=== PATIENT | male | born 1945 | race Caucasian/White ===

== ENCOUNTER 2017-01-18 13:18 | Outpatient (CLI) | payer MEDICARE, OTHER ==
[2017-01-18] MEDS ORDERED: ALBUTEROL NEB 2.5 MG/3 ML INH ONE (14:07)
== END 2017-01-18 13:19 | disposition home or self-care (01) ==
DX: R05 Cough (principal)
CPT/HCPCS: 94060; 94729; J7613

== ENCOUNTER 2017-06-17 11:45 | Outpatient (CLI) | payer MEDICARE, OTHER ==
[2017-06-17 19:12] LABS: ALBUMIN/GLOBULIN RATIO 1.4 (1.0-2.2); BILIRUBIN,TOTAL 0.6 mg/dL (0.2-1.0); CALCIUM 9.2 mg/dL (8.5-10.3); CREATININE 0.9 mg/dL (0.6-1.2); POTASSIUM 4.5 mmol/L (3.5-5.0); TOTAL PROTEIN 6.7 g/dL (6.7-8.2)
[2017-06-17 19:47] LABS: BASOPHILS # (AUTO) 0.1 10^3/uL (0.0-0.1); EOSINOPHILS # (AUTO) 0.7 10^3/uL (0.0-0.7); EOSINOPHILS % (AUTO) 8.9 %; HCT - HEMATOCRIT 47.1 % (42.0-52.0); HGB - HEMOGLOBIN 15.6 g/dL (14.0-18.0); LYMPHOCYTES # (AUTO) 1.7 10^3/uL (1.5-3.5); LYMPHOCYTES % (AUTO) 20.6 %; MEAN CORPUSCULAR HEMOGLOBIN 31.5 pg (27.0-31.0); MEAN CORPUSCULAR HGB CONC 33.1 g/dL (32.0-36.0); MEAN CORPUSCULAR VOLUME 95.3 fL (80.0-94.0); MEAN PLATELET VOLUME 8.5 fL (7.4-11.4); MONOCYTES # (AUTO) 0.7 10^3/uL (0.0-1.0); MONOCYTES % (AUTO) 8.4 %; NEUTROPHILS % (AUTO) 61.1 %; RED BLOOD COUNT 4.94 10^6/uL (4.70-6.10); RED CELL DISTRIBUTION WIDTH 15.2 % (12.0-15.0); UNCORRECTED WHITE BLOOD COUNT 8.2 x10^3/uL; WHITE BLOOD COUNT 8.2 x10^3/uL (4.8-10.8)
== END 2017-06-17 11:46 | disposition home or self-care (01) ==
LOC: LAB.WCP 11:45
PROVIDERS: ATTEND Family Medicine
DX: J45.998 Other asthma (principal); I25.10 Atherosclerotic heart disease of native coronary artery without angina pectoris; L40.9 Psoriasis, unspecified
CPT/HCPCS: 36415; 80053; 85025

== ENCOUNTER 2017-11-26 09:01 | Outpatient (CLI) | payer MEDICARE, OTHER ==
[2017-11-26 13:03] LABS: BASOPHILS % (AUTO) 0.4 %; EOSINOPHILS # (AUTO) 0.8 10^3/uL (0.0-0.7); HGB - HEMOGLOBIN 15.5 g/dL (14.0-18.0); LYMPHOCYTES % (AUTO) 21.8 %; MEAN CORPUSCULAR HEMOGLOBIN 31.9 pg (27.0-31.0); MEAN CORPUSCULAR HGB CONC 33.5 g/dL (32.0-36.0); MEAN CORPUSCULAR VOLUME 95.3 fL (80.0-94.0); MEAN PLATELET VOLUME 8.4 fL (7.4-11.4); MONOCYTES # (AUTO) 0.6 10^3/uL (0.0-1.0); MONOCYTES % (AUTO) 6.9 %; NEUTROPHILS # (AUTO) 5.7 10^3/uL (1.5-6.6); NEUTROPHILS % (AUTO) 61.9 %; PLT - PLATELET COUNT 214 10^3/uL (130-450); RED BLOOD COUNT 4.84 10^6/uL (4.70-6.10); RED CELL DISTRIBUTION WIDTH 13.8 % (12.0-15.0); WHITE BLOOD COUNT 9.1 x10^3/uL (4.8-10.8)
[2017-11-26 13:23] LABS: ALBUMIN 3.9 g/dL (3.2-5.5); ALBUMIN/GLOBULIN RATIO 1.2 (1.0-2.2); ALKALINE PHOSPHATASE 78 IU/L (42-121); ALT ALANINE AMINOTRANSFERASE 21 IU/L (10-60); AST ASPARTATE AMINOTRANSFERASE 21 IU/L (10-42); BILIRUBIN,TOTAL 0.5 mg/dL (0.2-1.0); BUN - BLOOD UREA NITROGEN 22 mg/dL (6-20); CALCIUM 9.2 mg/dL (8.5-10.3); CARBON DIOXIDE - CO2 28 mmol/L (21-32); CHLORIDE 103 mmol/L (101-111); CHOL/HDL RATIO 5.1 (<5.0); CHOLESTEROL 137 mg/dL; GFR - MDRD 73 (>89); GLUCOSE 113 mg/dL (70-100); HDL CHOLESTEROL 27 mg/dL; LDL CHOLESTEROL,CALCULATED 73 mg/dL; LDL/HDL RATIO 2.7 (<3.6); SODIUM 138 mmol/L (135-145); TOTAL PROTEIN 7.2 g/dL (6.7-8.2); VLDL CHOLESTEROL 37 mg/dL
== END 2017-11-26 09:02 | disposition home or self-care (01) ==
LOC: LAB.WCP 09:01
PROVIDERS: ATTEND Family Medicine
DX: I25.10 Atherosclerotic heart disease of native coronary artery without angina pectoris (principal); E78.5 Hyperlipidemia, unspecified; E66.9 Obesity, unspecified; I10 Essential (primary) hypertension; Z79.899 Other long term (current) drug therapy
CPT/HCPCS: 36415; 80053; 80061; 84443; 85025

== ENCOUNTER 2018-05-24 14:18 | Outpatient (CLI) | payer MEDICARE, OTHER ==
--- NOTE | 2018-05-25 09:47 | Ultrasound Report ---
Procedure Date: 05/24/2018 Accession Number: [id number] / [id number] Procedure: US - Carotid Doppler Complete CPT Code: FULL RESULT: EXAM: BILATERAL CAROTID AND VERTEBRAL ARTERY DUPLEX DOPPLER ULTRASOUND: EXAM DATE: 05/24/2018 04:00 PM CLINICAL HISTORY: Dilated episcleral vessels left eye. COMPARISON: None. TECHNIQUE: Grayscale imaging, color Doppler, and duplex spectral Doppler were used to evaluate the carotid and vertebral arteries bilaterally. Static images were obtained. FINDINGS: Calcified atheromatous plaque is seen in the right common and internal carotid and external carotid arteries. Calcified atheromatous plaque is seen in the left common and left internal and external carotid arteries. Normal antegrade flow is present in bilateral vertebral arteries. VELOCITIES: Right: RCCA Prox: PSV 113 cm/sec. RCCA Dist: PSV 86 cm/sec, EDV 17 cm/sec. RECA: PSV 141 cm/sec. R Bulb: PSV 77 cm/sec, EDV 14 cm/sec, ICA/CCA ratio 0.90. KEENAN Prox: PSV 107 cm/sec, EDV 18 cm/sec, ICA/CCA ratio 1.24. KEENAN Mid: PSV 116 cm/sec, EDV 25 cm/sec, ICA/CCA ratio 1.35. KEENAN Dist: PSV 87 cm/sec, EDV 27 cm/sec, ICA/CCA ratio 1.01. RVA: PSV 75 cm/sec. RVA flow direction: Antegrade. Left: LCCA Prox: PSV 141 cm/sec. LCCA Dist: PSV 73 cm/sec, EDV 15 cm/sec. LECA: PSV 94 cm/sec. L Bulb: PSV 45 cm/sec, EDV 7 cm/sec, ICA/CCA ratio 0.62. LICA Prox: PSV 80 cm/sec, EDV 21 cm/sec, ICA/CCA ratio 1.10. LICA Mid: PSV 69 cm/sec, EDV 21 cm/sec, ICA/CCA ratio 0.95. LICA Dist: PSV 116 cm/sec, EDV 35 cm/sec, ICA/CCA ratio 1.59. LVA: PSV 73 cm/sec. LVA flow direction: Antegrade. ICA diameter stenosis: Right: <50% by velocity and <70% by NASCET criteria. Left: <50% by velocity and <70% by NASCET criteria. IMPRESSION: 1. Bilateral carotid artery calcified atheromatous plaque. 2. In the right carotid artery there are no elevated carotid artery velocities to suggest hemodynamically significant stenosis. 3. In the left carotid artery there are no elevated carotid artery velocities to suggest hemodynamically significant stenosis. 4. Normal antegrade flow is present in bilateral vertebral arteries. General Recommendations: Stenosis =50% ICA - Follow-up ultrasound 6-12 months Stenosis <50% ICA - High Risk Patient with plaque - Follow-up ultrasound 1-2 years Normal Study but High Risk Patient - Follow-up ultrasound 3-5 years Management recommendations and diagnostic criteria are based on current IAC endorsed standards in Carotid Artery Stenosis: Grayscale and Doppler Ultrasound Diagnosis. Validated velocity measurements with angiographic measurements and velocity criteria are extrapolated from diameter data as defined by the Society of Radiologists in Ultrasound Consensus Conference Radiology 2003; 229;340-346. RADIA
== END 2018-05-24 14:19 | disposition home or self-care (01) ==
LOC: DI 14:18
PROVIDERS: ATTEND Ophthalmology
DX: H15.89 Other disorders of sclera (principal)
CPT/HCPCS: 93880

== ENCOUNTER 2018-06-01 11:21 | Outpatient (CLI) | payer MEDICARE, OTHER ==
[2018-06-01 12:30] LABS: BASOPHILS # (AUTO) 0.1 10^3/uL (0.0-0.1); EOSINOPHILS # (AUTO) 0.8 10^3/uL (0.0-0.7); HGB - HEMOGLOBIN 14.8 g/dL (14.0-18.0); LYMPHOCYTES # (AUTO) 1.4 10^3/uL (1.5-3.5); LYMPHOCYTES % (AUTO) 18.5 %; MEAN CORPUSCULAR HEMOGLOBIN 30.9 pg (27.0-31.0); MEAN CORPUSCULAR HGB CONC 32.8 g/dL (32.0-36.0); MEAN CORPUSCULAR VOLUME 94.2 fL (80.0-94.0); MEAN PLATELET VOLUME 7.4 fL (7.4-11.4); MONOCYTES # (AUTO) 0.6 10^3/uL (0.0-1.0); MONOCYTES % (AUTO) 8.2 %; NEUTROPHILS # (AUTO) 4.8 10^3/uL (1.5-6.6); NEUTROPHILS % (AUTO) 62.3 %; PLT - PLATELET COUNT 259 10^3/uL (130-450); RED CELL DISTRIBUTION WIDTH 14.6 % (12.0-15.0); WHITE BLOOD COUNT 7.7 x10^3/uL (4.8-10.8)
[2018-06-01 12:40] LABS: URIC ACID 6.1 mg/dL (2.6-7.2)
[2018-06-01 13:06] LABS: RHEUMATOID FACTOR NEGATIVE (Negative)
[2018-06-03 13:31] LABS: ANA SCREEN NEGATIVE (NEGATIVE)
[2018-06-03 21:15] LABS: ANGIOTENSIN-1-CONVERTING ENZYM 20 U/L (9-67)
== END 2018-06-01 11:22 | disposition home or self-care (01) ==
LOC: LAB 11:21
PROVIDERS: ATTEND Ophthalmology
DX: H15.122 Nodular episcleritis, left eye (principal)
CPT/HCPCS: 36415; 82164; 82947; 84550; 85025; 85651; 86021; 86038; 86430

== ENCOUNTER 2018-07-22 07:43 | Day surgery (SDC) | payer MEDICARE, OTHER ==
[~2018-07-22 07:43] MED LIST: BRIMONIDINE 0.2% OPHTH DROPS 5 ML ONE; BSS/LIDOCAINE/EPINEPHRINE 1 ML SYRINGE ONE; CYCLOPENTOLATE 1% OPHTH DROPS 2 ML ONE; EPINEPHrine 1 MG/ML AMP ONE; KETOROLAC 0.45% OPHTH DROPS ONE; PHENYLEPHRINE 2.5% OPHTH 2 ML DROPS ONE; PROPARACAINE 0.5% OPHTH DROPS 15 ML ONE; TIMOLOL 0.5% OPHTH DROPS ONE; TRIAMCIN/MOXIFLOX OPHTHALMIC 0.6 ML VIAL IO ONE; VANCOMYCIN OPHTHALMI 8MG/0.8ML 8 MG/0.8 ML SYRINGE IO ONE
[2018-07-22] MEDS ORDERED: KETOROLAC 0.45% OPHTH DROPS LEFTEYE ONE (08:20)
[2018-07-22] MEDS ORDERED: PROPARACAINE 0.5% OPHTH DROPS 15 ML LEFTEYE ONE ×2 (08:20→09:19)
[2018-07-22] MEDS ORDERED: PHENYLEPHRINE 2.5% OPHTH 2 ML DROPS LEFTEYE ONE (08:20)
[2018-07-22] MEDS ORDERED: CYCLOPENTOLATE 1% OPHTH DROPS 2 ML LEFTEYE ONE (08:20)
[2018-07-22] MEDS ORDERED: LACTATED RINGERS 500 ML IV ONE (08:23)
--- NOTE | 2018-07-22 08:45 | ANESTHESIA ---
Pre-Anesthesia VS, & Labs - Diagnosis left senile combined cataract - Procedure left extraction cataract with lens implant Vital Signs: Temp Pulse Resp BP Pulse Ox 36.7 C 20 157/73 H 97 07/22/18 08:08 07/22/18 08:08 07/22/18 08:08 07/22/18 08:08 Height 6 ft Weight (kg) 143 kg - NPO >8 hours - Lab Results Lab results reviewed: Yes Home Medications and Allergies Home Medications: Ambulatory Orders Medication Instructions Recorded Confirmed FLUoxetine [PROzac] 20 mg PO DAILY 07/21/18 07/22/18 Folic Acid 1 mg PO DAILY 07/21/18 07/22/18 Losartan Potassium 50 mg PO DAILY 07/21/18 07/22/18 Methotrexate 5 tab PO ONCE 07/21/18 07/22/18 Metoprolol Tartrate 25 mg PO DAILY 07/21/18 07/22/18 Simvastatin 80 mg PO DAILY 07/21/18 07/22/18 Tamsulosin [Flomax] 0.4 mg PO DAILY 07/21/18 07/22/18 Allergies/Adverse Reactions: Allergies Allergy/AdvReac Type Severity Reaction Status Date / Time No Known Drug Allergies Allergy Verified 07/21/18 15:07 Anes History & Medical History - Anesthetic History Anesthesia Complications: reports: No previous complications Family history of Anesthesia Complications: Denies Family history of Malignant Hyperthermia: Denies - Medical History Cardiovascular: reports: Hypertension, High cholesterol Pulmonary: reports: Sleep apnea Gastrointestinal: reports: None Urinary: reports: Benign prostate hypertrophy Musculoskeletal: reports: None Endocrine/Autoimmune: reports: None Skin: reports: Psoriasis - Surgical History General: Colonoscopy Eyes Ears Nose Throat (EENT): Other Cardiothoracic: Vascular surgery, AAA Orthopedic:  Exam General: Alert, Oriented x3, Cooperative, No acute distress Dental: Partials Upper, Partials Lower Mouth Openin Fingerbreadth Neck Mobility: Normal Mallampati classification: II Thyromental Distance: greater than 6 cm Respiratory: Lungs clear, Normal breath sounds, No respiratory distress, No accessory muscle use Cardiovascular: Regular rate, Normal S1, Normal S2, No murmurs Mental/Cognitive Status: Alert/Oriented X3, Normal for patient Cognitive Status: Within normal limits Plan Anesthesia Type: MAC Consent for Procedure(s) Verified and Reviewed: Yes Code Status: Attempt Resuscitation ASA classification: 3-Severe systemic disease Is this case an emergency?: No
[2018-07-22] MEDS ORDERED: VANCOMYCIN OPHTHALMI 8MG/0.8ML 8 MG/0.8 ML SYRINGE IO ONE (09:16)
[2018-07-22] MEDS ORDERED: EPINEPHrine 1 MG/ML AMP IR ONE (09:17)
[2018-07-22] MEDS ORDERED: BRIMONIDINE 0.2% OPHTH DROPS 5 ML OPTH ONE (09:17)
[2018-07-22] MEDS ORDERED: CHONDR SULF/HYALURONATE SYRINGE IO ONE (09:18)
[2018-07-22] MEDS ORDERED: BSS/LIDOCAINE/EPINEPHRINE 1 ML SYRINGE IO ONE ×2 (09:18)
[2018-07-22] MEDS ORDERED: TRIAMCIN/MOXIFLOX/VANCO 1 ML VIAL IO ONE (09:18)
[2018-07-22] MEDS ORDERED: TIMOLOL 0.5% OPHTH DROPS OPTH ONE (09:18)
[2018-07-22] MEDS ORDERED: MIDAZOLAM 2 MG/2 ML VIAL IVP ONE (09:20)
[2018-07-22 10:25] VITALS: BP 171/80
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
== END 2018-07-22 07:44 | disposition home or self-care (01) ==
LOC: SDS 07:43
PROVIDERS: ATTEND Ophthalmology
PROC: 08RK3JZ Replacement of Left Lens with Synthetic Substitute, Percutaneous Approach (ICD-10-PCS; principal; 2018-07-22 09:00)
DX: H25.812 Combined forms of age-related cataract, left eye (principal); I10 Essential (primary) hypertension; G47.30 Sleep apnea, unspecified; E78.00 Pure hypercholesterolemia, unspecified; F41.9 Anxiety disorder, unspecified; N40.0 Benign prostatic hyperplasia without lower urinary tract symptoms; Z86.79 Personal history of other diseases of the circulatory system
CPT/HCPCS: 66984; A9270; J3490; V2632

== ENCOUNTER 2018-09-19 01:25 | Emergency (ER) | payer OTHER, MEDICARE ==
[2018-09-19] MEDS ORDERED: MORPHINE 2 MG/ML CARPUJECT IVP STA (01:40)
[2018-09-19] MEDS ORDERED: IOPAMIDOL-300 100 ML VIAL ONE (01:50)
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
[2018-09-19 02:03] LABS: BASOPHILS # (AUTO) 0.1 10^3/uL (0.0-0.1); BASOPHILS % (AUTO) 0.5 %; EOSINOPHILS # (AUTO) 0.4 10^3/uL (0.0-0.7); EOSINOPHILS % (AUTO) 2.4 %; HGB - HEMOGLOBIN 14.9 g/dL (14.0-18.0); LYMPHOCYTES # (AUTO) 1.1 10^3/uL (1.5-3.5); LYMPHOCYTES % (AUTO) 7.6 %; MEAN CORPUSCULAR HEMOGLOBIN 31.8 pg (27.0-31.0); MEAN CORPUSCULAR HGB CONC 34.6 g/dL (32.0-36.0); MEAN CORPUSCULAR VOLUME 91.8 fL (80.0-94.0); MEAN PLATELET VOLUME 7.4 fL (7.4-11.4); MONOCYTES # (AUTO) 1.1 10^3/uL (0.0-1.0); MONOCYTES % (AUTO) 7.4 %; NEUTROPHILS # (AUTO) 12.4 10^3/uL (1.5-6.6); NEUTROPHILS % (AUTO) 82.1 %; PLT - PLATELET COUNT 219 10^3/uL (130-450); RED BLOOD COUNT 4.68 10^6/uL (4.70-6.10); RED CELL DISTRIBUTION WIDTH 14.2 % (12.0-15.0); WHITE BLOOD COUNT 15.2 x10^3/uL (4.8-10.8)
[2018-09-19 02:09] LABS: ALBUMIN 3.9 g/dL (3.2-5.5); ALBUMIN/GLOBULIN RATIO 1.3 (1.0-2.2); BILIRUBIN,TOTAL 0.3 mg/dL (0.2-1.0); CALCIUM 8.5 mg/dL (8.5-10.3); CREATININE 0.9 mg/dL (0.6-1.2); TOTAL PROTEIN 6.9 g/dL (6.7-8.2)
[2018-09-19] MEDS ORDERED: IOPAMIDOL-300 100 ML VIAL IVP ONE (02:36)
[2018-09-19] MEDS ORDERED: HYDROcod/ACETAM 5/325 MG TABLET PO STA (03:07)
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
[2018-09-19 05:48] VITALS: BP 132/65
== END 2018-09-19 05:52 | disposition short-term general hospital (02) ==
LOC: ED 01:25
DX: I71.01 Dissection of thoracic aorta (principal); S32.041A Stable burst fracture of fourth lumbar vertebra, initial encounter for closed fracture; S32.039A Unspecified fracture of third lumbar vertebra, initial encounter for closed fracture; S32.049A Unspecified fracture of fourth lumbar vertebra, initial encounter for closed fracture; V89.2XXA Person injured in unspecified motor-vehicle accident, traffic, initial encounter; K43.9 Ventral hernia without obstruction or gangrene; I10 Essential (primary) hypertension; Z87.891 Personal history of nicotine dependence
CPT/HCPCS: 36415; 71275; 74174; 80053; 83690; 84484; 85025; 93005; 96374; 99284; 99285; A9270; Q9967

== ENCOUNTER 2018-09-19 05:57 | Outpatient (CLI) | payer MEDICARE, OTHER | END 2018-09-19 05:58 | disposition short-term general hospital (02) | LOC: EMS 05:57 | PROVIDERS: ATTEND Surgery | DX: I71.01 Dissection of thoracic aorta (principal) | CPT/HCPCS: A0425; A0426 ==

== ENCOUNTER 2018-10-28 17:45 | Outpatient (CLI) | payer MEDICARE, OTHER ==
[2018-10-28 18:30] LABS: BASOPHILS % (AUTO) 0.5 %; EOSINOPHILS # (AUTO) 0.2 10^3/uL (0.0-0.7); EOSINOPHILS % (AUTO) 2.6 %; HGB - HEMOGLOBIN 13.4 g/dL (14.0-18.0); LYMPHOCYTES # (AUTO) 1.4 10^3/uL (1.5-3.5); LYMPHOCYTES % (AUTO) 18.8 %; MEAN CORPUSCULAR HEMOGLOBIN 30.9 pg (27.0-31.0); MEAN CORPUSCULAR HGB CONC 32.9 g/dL (32.0-36.0); MEAN CORPUSCULAR VOLUME 93.8 fL (80.0-94.0); MEAN PLATELET VOLUME 7.2 fL (7.4-11.4); MONOCYTES # (AUTO) 0.7 10^3/uL (0.0-1.0); NEUTROPHILS # (AUTO) 5.1 10^3/uL (1.5-6.6); NEUTROPHILS % (AUTO) 69.1 %; PLT - PLATELET COUNT 288 10^3/uL (130-450); RED BLOOD COUNT 4.35 10^6/uL (4.70-6.10); RED CELL DISTRIBUTION WIDTH 14.7 % (12.0-15.0); WHITE BLOOD COUNT 7.4 x10^3/uL (4.8-10.8)
== END 2018-10-28 23:59 | disposition home or self-care (01) ==
LOC: LAB.R 17:45
DX: I10 Essential (primary) hypertension (principal); D72.829 Elevated white blood cell count, unspecified
CPT/HCPCS: 80048; 85025

== ENCOUNTER 2018-12-02 07:43 | Day surgery (SDC) | payer MEDICARE, OTHER ==
[~2018-12-02 07:43] MED LIST changes: -EPINEPHrine 1 MG/ML AMP ONE
[2018-12-02] MEDS ORDERED: KETOROLAC 0.45% OPHTH DROPS RIGHTEYE ONE (08:00)
[2018-12-02] MEDS ORDERED: PHENYLEPHRINE 2.5% OPHTH 2 ML DROPS RIGHTEYE ONE (08:00)
[2018-12-02] MEDS ORDERED: CYCLOPENTOLATE 1% OPHTH DROPS 2 ML RIGHTEYE ONE (08:00)
[2018-12-02] MEDS ORDERED: PROPARACAINE 0.5% OPHTH DROPS 15 ML RIGHTEYE ONE (08:00)
[2018-12-02] MEDS ORDERED: MIDAZOLAM 2 MG/2 ML VIAL IVP ONE (08:24)
--- NOTE | 2018-12-02 08:24 | ANESTHESIA ---
Pre-Anesthesia VS, & Labs - Diagnosis R senile combined cataract - Procedure R extraction cataract w IOL Vital Signs: Temp Pulse Resp BP Pulse Ox 36.3 C L 64 18 115/68 98 12/02/18 08:01 12/02/18 08:01 12/02/18 08:01 12/02/18 08:01 12/02/18 08:01 Last Vital Signs Temp 36.3 C L 12/02/18 08:01 Pulse 64 12/02/18 08:01 Resp 18 12/02/18 08:01 BP 115/68 12/02/18 08:01 Pulse Ox 98 12/02/18 08:01 Height 6 ft 1 in Weight (kg) 128.4 kg Body Mass Index 41.9 Height 6 ft 1 in Weight (kg) 128.4 kg Body Mass Index 41.9 - NPO >8 hours Home Medications and Allergies Home Medications: Ambulatory Orders Aspirin [Adult Aspirin Regimen] 81 mg PO DAILY 12/01/18 Fluticasone [Flonase] 1 puffs NS BID 12/01/18 Spironolactone 25 mg PO DAILY 12/01/18 FLUoxetine [PROzac] 20 mg PO DAILY 07/21/18 Folic Acid 1 mg PO DAILY 07/21/18 Losartan Potassium 100 mg PO DAILY 07/21/18 Methotrexate 5 tab PO ONCE 07/21/18 Metoprolol Tartrate 100 mg PO BID 07/21/18 Simvastatin 40 mg PO DAILY 07/21/18 Tamsulosin [Flomax] 0.4 mg PO DAILY 07/21/18 Aspirin [Adult Aspirin Regimen] 81 mg PO DAILY 12/01/18 Fluticasone [Flonase] 1 puffs NS BID 12/01/18 Spironolactone 25 mg PO DAILY 12/01/18 Allergies/Adverse Reactions: Allergies Allergy/AdvReac Type Severity Reaction Status Date / Time No Known Drug Allergies Allergy Verified 09/19/18 01:34 Anes History & Medical History - Anesthetic History Anesthesia Complications: reports: No previous complications Family history of Anesthesia Complications: Denies Family history of Malignant Hyperthermia: Denies - Medical History Cardiovascular: reports: Hypertension, High cholesterol Pulmonary: reports: Sleep apnea Gastrointestinal: reports: None Urinary: reports: Benign prostate hypertrophy Musculoskeletal: reports: None Endocrine/Autoimmune: reports: None Skin: reports: Psoriasis Smoking Status: Former smoker Psychosocial: reports: No issues indicated - Surgical History General: Colonoscopy Eyes Ears Nose Throat (EENT): Cataracts Cardiothoracic: Vascular surgery, AAA Orthopedic:  Exam General: Alert, Oriented x3, Cooperative Dental: Partials Upper, Partials Lower Mouth Openin Fingerbreadth Neck Mobility: Normal Mallampati classification: II Thyromental Distance: 4-6 cm Respiratory: Lungs clear, Normal breath sounds Cardiovascular: Regular rate Neurological: Normal speech Mental/Cognitive Status: Alert/Oriented X3, Normal for patient Cognitive Status: Within normal limits Plan Anesthesia Type: MAC Consent for Procedure(s) Verified and Reviewed: Yes Code Status: Attempt Resuscitation ASA classification: 3-Severe systemic disease Is this case an emergency?: No
[2018-12-02] MEDS ORDERED: LACTATED RINGERS 500 ML IV ONE (08:35)
[2018-12-02] MEDS ORDERED: EPINEPHrine 1 MG/ML AMP IVP ONE (09:12)
[2018-12-02] MEDS ORDERED: BRIMONIDINE 0.2% OPHTH DROPS 5 ML OPTH ONE (09:12)
[2018-12-02] MEDS ORDERED: BSS/LIDOCAINE/EPINEPHRINE 1 ML SYRINGE IO ONE (09:13)
[2018-12-02] MEDS ORDERED: TIMOLOL 0.5% OPHTH DROPS OPTH ONE (09:13)
[2018-12-02] MEDS ORDERED: CHONDR SULF/HYALURONATE SYRINGE IO ONE (09:13)
[2018-12-02] MEDS ORDERED: VANCOMYCIN OPHTHALMI 8MG/0.8ML 8 MG/0.8 ML SYRINGE IO ONE (09:15)
[2018-12-02] MEDS ORDERED: TRIAMCIN/MOXIFLOX OPHTHALMIC 0.6 ML VIAL IO ONE (09:15)
[2018-12-02 10:14] VITALS: BP 136/64
== END 2018-12-02 07:44 | disposition home or self-care (01) ==
LOC: SDS 07:43
PROVIDERS: ATTEND Ophthalmology
PROC: 08RJ3JZ Replacement of Right Lens with Synthetic Substitute, Percutaneous Approach (ICD-10-PCS; principal; 2018-12-02 09:00)
DX: H25.811 Combined forms of age-related cataract, right eye (principal); I10 Essential (primary) hypertension; E78.00 Pure hypercholesterolemia, unspecified; G47.30 Sleep apnea, unspecified; N40.0 Benign prostatic hyperplasia without lower urinary tract symptoms; Z87.891 Personal history of nicotine dependence
CPT/HCPCS: 66984; A9270; J3490; V2632

== ENCOUNTER 2019-01-04 13:51 | Outpatient (CLI) | payer MEDICARE, OTHER ==
--- NOTE | 2019-01-04 14:59 | XRAY Report ---
Reason: COUGH Procedure Date: 01/04/2019 Accession Number: [id number] / [id number] Procedure: WCP - Chest 2 View X-Ray CPT Code: 68921 FULL RESULT: EXAM: CHEST RADIOGRAPHY EXAM DATE: 01/04/2019 02:05 PM. CLINICAL HISTORY: COUGH. COMPARISON: Chest CT 09/19/2018. TECHNIQUE: 2 views. FINDINGS: Lungs/Pleura: Left perihilar linear opacities appear similar to prior CT and likely represent atelectasis. No other focal opacities. No pleural effusion. No pneumothorax. Normal volumes. Mediastinum: There is tortuosity of the thoracic aorta. Heart and mediastinal contours are otherwise unremarkable. IMPRESSION: No evidence of acute thoracic process RADIA
== END 2019-01-04 13:52 | disposition home or self-care (01) ==
LOC: DI.WCP 13:51
PROVIDERS: ATTEND Physician Assistant
DX: R05 Cough (principal)
CPT/HCPCS: 71046

== ENCOUNTER 2021-04-01 12:14 | Day surgery (SDC) | payer MEDICARE, OTHER ==
[2021-04-01] MEDS ORDERED: LACTATED RINGERS 1,000 ML IV ONE ×2 (12:54→14:22)
--- NOTE | 2021-04-01 12:54 | ANESTHESIA ---
Pre-Anesthesia VS, & Labs - Diagnosis screening - Procedure colonoscopy Height: 6 ft 1 in - NPO >8 hours Home Medications and Allergies FLUoxetine [PROzac] 20 mg PO DAILY 07/21/18 Folic Acid 1 mg PO DAILY 07/21/18 Losartan Potassium 100 mg PO DAILY 07/21/18 Methotrexate [Methotrexate Sodium] 5 tab PO ONCE 07/21/18 Metoprolol Tartrate 100 mg PO BID 07/21/18 Simvastatin 40 mg PO DAILY 07/21/18 Tamsulosin [Flomax] 0.4 mg PO DAILY 07/21/18 Aspirin [Adult Aspirin Regimen] 81 mg PO DAILY 12/01/18 Fluticasone [Flonase] 1 puffs NS BID 12/01/18 Spironolactone 25 mg PO DAILY 12/01/18 Allergies/Adverse Reactions: Allergies Allergy/AdvReac Type Severity Reaction Status Date / Time No Known Drug Allergies Allergy Verified 09/19/18 01:34 Anes History & Medical History - Anesthetic History Anesthesia Complications: reports: No previous complications Family history of Anesthesia Complications: Denies Family history of Malignant Hyperthermia: Denies - Medical History Cardiovascular: reports: Hypertension, Valve disorder (), Other (AAA repair 2011) Pulmonary: reports: Shortness of breath Gastrointestinal: reports: None Urinary: reports: Frequency Musculoskeletal: reports: None Endocrine/Autoimmune: reports: None Skin: reports: Psoriasis Smoking Status: Former smoker - Surgical History General: reports: Colonoscopy Eyes Ears Nose Throat (EENT): reports: Cataracts Cardiothoracic: reports: AAA Orthopedic: Exam General: Alert, Oriented x3 Dental: Partials Upper, Partials Lower Mouth Openin Fingerbreadth Neck Mobility: Normal Mallampati classification: III Thyromental Distance: 4-6 cm Respiratory: Lungs clear Cardiovascular: Regular rate Plan Anesthesia Type: General, Total IV Consent for Procedure(s) Verified and Reviewed: Yes Code Status: Attempt Resuscitation ASA classification: 3-Severe systemic disease Is this case an emergency?: No
[2021-04-01] MEDS ORDERED: PROPOFOL 1000 MG/100 ML 1,000 MG/100 ML BOTTLE IV ONE (13:27)
[2021-04-01] MEDS ORDERED: IOPAMIDOL-300 100 ML VIAL ONE (14:35)
[2021-04-01] MEDS ORDERED: IOPAMIDOL-300 50 ML VIAL ONE (14:35)
[2021-04-01 14:49] VITALS: BP 149/65
[2021-04-01] MEDS ORDERED: IOPAMIDOL-300 100 ML VIAL IVP ONE (15:34)
[2021-04-01] MEDS ORDERED: IOPAMIDOL-300 50 ML VIAL PO ONE (15:34)
--- NOTE | 2021-04-01 16:06 | CT Report ---
PROCEDURE: Abdomen/Pelvis W INDICATIONS: incomplete colonoscopy/ with rectal contrast CONTRAST: IV CONTRAST: Isovue 300 ml: 100 PO CONTRAST: Isovue 300 ml50 TECHNIQUE: After the administration of intravenous and rectal contrast, 5 mm thick sections acquired from the di aphragms to the symphysis. 5 mm thick coronal and sagittal reformats were acquired. For radiation d ose reduction, the following was used: automated exposure control, adjustment of mA and/or kV accord ing to patient size. COMPARISON: CT angiogram abdomen pelvis 09/19/2018. FINDINGS: Image quality: Excellent. ABDOMEN: Lung bases: There is mild atelectasis and scarring in the lung bases. Heart size is enlarged. Solid organs: Multiple small hypodense lesions are redemonstrated within the liver, several of which demonstrate attenuation values consistent with cysts. The remainder are too small to characterize. Ho wever, the findings are similar in size and morphology compared to the prior study and likely represe nt cysts. Gallbladder appears within normal limits without calcified gallstones. Biliary system is no n dilated. The spleen is normal in size. Pancreas enhances normally without peripancreatic fat stran ding or fluid collections. No adrenal nodules. Kidneys demonstrate no hydronephrosis. Bilateral jie al cysts are redemonstrated. There are areas of renal cortical thinning in the right kidney likely re present sequelae of prior trauma, infection, or infarcts. Peritoneum and bowel: Small bowel loops demonstrate normal wall thickness and caliber. The appendix i s normal in appearance. There is mild contrast distention of the colon. No colonic bowel wall thicken ing or discrete mass identified. A rectal tube is present. No free fluid or air. Nodes and vessels: No retroperitoneal or mesenteric adenopathy by size criteria. Postsurgical change s of the distal aorta and common iliac arteries are redemonstrated status post prior aneurysm surgica l repair. Miscellaneous: There are multiple ventral abdominal hernias containing loops of small and large sobia l. No evidence of associated bowel obstruction or strangulation. PELVIS: Genitourinary: Bladder wall thickness is normal. Miscellaneous: No inguinal hernias or adenopathy. Bones: No suspicious bony lesions. No vertebral body compression fractures. IMPRESSION: 1. No discrete colonic wall thickening or intraluminal mass identified. 2. Multiple ventral abdominal hernias containing loops of small and large bowel without evidence of a ssociated obstruction or strangulation. Reviewed by: Irvin Porras MD on 04/01/2021 4:05 PM PDT Approved by: Irvin Porras MD on 04/01/2021 4:05 PM PDT Station ID: [id number]
--- NOTE | 2021-04-01 16:25 | ANESTHESIA POST OP EVALUATION ---
Anesthesia Post Eval - Post Anesthesia Eval Vitals: Last Vital Signs Temp 36.7 C 04/01/21 14:23 Pulse 58 L 04/01/21 14:49 Resp 16 04/01/21 14:49 BP 149/65 H 04/01/21 14:49 Pulse Ox 100 04/01/21 14:49 CV Function Including HR & BP: Stable Pain Control: Satisfactory Nausea & Vomiting: Negative Mental Status: Baseline Respiratory Status: Airway Patent Hydration Status: Satisfactory Anesthesia Complications: None
== END 2021-04-01 12:15 | disposition home or self-care (01) ==
LOC: SDS 12:14
PROVIDERS: ATTEND Surgery
DX: Z12.11 Encounter for screening for malignant neoplasm of colon (principal); Q43.8 Other specified congenital malformations of intestine; K43.9 Ventral hernia without obstruction or gangrene; I10 Essential (primary) hypertension; I35.0 Nonrheumatic aortic (valve) stenosis; Z87.891 Personal history of nicotine dependence
CPT/HCPCS: 45378; 74177; J7120; Q9967

== ENCOUNTER 2021-04-18 12:25 | Outpatient (CLI) | payer MEDICARE ==
[2021-04-18] MEDS ORDERED: IOVERSOL 320 100 ML VIAL IVP ONE ×3 (12:44→14:27)
[2021-04-18 13:10] LABS: CALCIUM 9.5 mg/dL (8.5-10.3); POTASSIUM 4.5 mmol/L (3.5-5.0)
--- NOTE | 2021-04-18 15:39 | CT Report ---
PROCEDURE: ANGIO ABDOMEN W/WO INDICATIONS: Right Renal Cyst CONTRAST: IV CONTRAST: Optiray 320 ml: 200 PO CONTRAST: *NO PO CONTRAST TECHNIQUE: Noncontrast CT of the abdomen is performed. After the administration of intravenous contrast, 2 and 5 mm sections acquired from the diaphragm to the iliac crests. 3-dimensional maximum intensity projec tion (MIP) coronal and sagittal reformats, and/or 3-dimensional volume rendering reformatting was the n performed. For radiation dose reduction, the following was used: automated exposure control, adju stment of mA and/or kV according to patient size. COMPARISON: CT dated 04/01/2021 FINDINGS: Image quality: Excellent. Extravascular tissues: Lung bases are clear. Heart size is normal. Liver and spleen are normal in size. Multiple hepatic cysts are present, as before. Gallbladder is grossly unremarkable Biliary sy stem is non dilated. Pancreas enhances normally. No adrenal nodules. There are bilateral renal cys ts, as before. Largest of these is in the superior pole left kidney in the parapelvic location measur ing roughly 24 mm which demonstrates no internal enhancement. There is an inferior pole right renal c yst which is exophytic anteriorly measuring 20 mm, which demonstrates mild precontrast high density w ith no evidence of internal enhancement. Kidneys are otherwise normal in size and enhancement, withou t hydronephrosis. Non-opacified bowel loops demonstrate normal wall thickness and caliber. No free fluid or air. No retroperitoneal or mesenteric adenopathy. Multiple bowel containing right anterior abdominal wall hernias are present, as before, largest of which measures roughly 18 cm diameter, invo lving the right anterior abdominal pelvic wall, and is incompletely visualized. No evidence of associ ated bowel circulation, nor obstruction. No suspicious bony abnormalities. No vertebral body constanza teofilo fractures. Abdominal aorta: There is mild diffuse plaque causing mild diffuse aortic stenosis. There is an infr arenal abdominal aortic aneurysm measuring 36 mm short axis, as before. Aortoiliac bypass has been pe rformed. Bilateral aortoiliac limbs are patent. Mesenteric arteries: High-grade origin stenosis of the superior mesenteric artery. Moderate to high- grade origin stenosis of this appear mesenteric artery. Inferior mesenteric artery is patent. Renal arteries: Single bilateral renal arteries are present. There is a moderate to high-grade steno sis within the right renal artery, roughly 15 mm distal to its origin. Left renal artery demonstrates a mild origin stenosis. IMPRESSION: 1. Renal and mesenteric arterial stenoses as described above. 2. Aortoiliac bypass. 3. Infrarenal abdominal aortic aneurysm. 4. No evidence of renal neoplasm. Bilateral renal cysts. 5. Multiple bowel-containing anterior abdominal wall hernias without evidence of bowel strangulation, nor obstruction. Reviewed by: Andre Tsang MD on 04/18/2021 3:37 PM PDT Approved by: Andre Tsang MD on 04/18/2021 3:37 PM PDT Station ID: [id number]
== END 2021-04-18 12:26 | disposition home or self-care (01) ==
LOC: LAB 12:25
PROVIDERS: ATTEND Internal Medicine
DX: I70.1 Atherosclerosis of renal artery (principal); K55.1 Chronic vascular disorders of intestine; I71.4 Abdominal aortic aneurysm, without rupture; N28.1 Cyst of kidney, acquired; Z95.828 Presence of other vascular implants and grafts; K43.9 Ventral hernia without obstruction or gangrene
CPT/HCPCS: 36415; 74175; 80048; Q9967

== ENCOUNTER 2021-05-24 11:38 | Outpatient (CLI) | payer MEDICARE ==
[2021-05-24 18:07] LABS: CALCIUM 8.8 mg/dL (8.5-10.3); POTASSIUM 4.2 mmol/L (3.5-5.0)
[2021-05-24 18:08] LABS: ESTIMATED AVERAGE GLUCOSE 131 mg/dL (70-100); HEMOGLOBIN A1c% 6.2 % (4.27-6.07)
== END 2021-05-24 23:59 | disposition home or self-care (01) ==
LOC: LAB.WCP 11:38
PROVIDERS: ATTEND Internal Medicine
DX: R73.01 Impaired fasting glucose (principal)
CPT/HCPCS: 36415; 80048; 82043; 82570; 83036

== ENCOUNTER 2021-05-28 08:00 | Outpatient (CLI) | payer MEDICARE ==
[2021-05-28 18:50] LABS: MICROALBUM/CREATININE RATIO,UR 14.8 ug/mg (<30.0); MICROALBUMIN,URINE 1.7 mg/dL (0-300.0)
== END 2021-05-28 23:59 | disposition home or self-care (01) ==
LOC: LAB.WCP 08:00
PROVIDERS: ATTEND Internal Medicine
DX: R73.01 Impaired fasting glucose (principal)
CPT/HCPCS: 82043; 82570

== ENCOUNTER 2022-03-12 12:43 | Outpatient (CLI) | payer MEDICARE ==
--- NOTE | 2022-03-13 09:46 | Ultrasound Report ---
PROCEDURE: Duplex Lwr Ext Arterial Bilat INDICATIONS: BILATERAL CLAUDICATION TECHNIQUE: Color and pulse Doppler interrogation was performed of both lower extremity arterial systems, with im age documentation. COMPARISON: None FINDINGS: Right lower extremity: Common femoral artery: 100 cm/sec, with triphasic flow. Deep femoral artery: 54 cm/sec, with biphasic flow. Proximal superficial femoral artery: 79 cm/sec, with triphasic flow. Mid superficial femoral artery: 87 cm/sec, with biphasic flow. Distal superficial femoral artery: 45 cm/sec, with biphasic flow. Popliteal artery: 43 cm/sec, with triphasic flow. Posterior tibial artery: 103 cm/sec, with biphasic flow. Anterior tibial artery/dorsalis pedis: 66/23 cm/sec, with biphasic flow. Velasquez-scale imaging description: Scattered plaque. Widely patent vessels. Left lower extremity: Common femoral artery: 66 cm/sec, with triphasic flow. Deep femoral artery: 50 cm/sec, with biphasic flow. Proximal superficial femoral artery: 75 cm/sec, with triphasic flow. Mid superficial femoral artery: 77 cm/sec, with biphasic flow. Distal superficial femoral artery: 49 cm/sec, with biphasic flow. Popliteal artery: 47 cm/sec, with triphasic flow. Posterior tibial artery: 86 cm/sec, with biphasic flow. Anterior tibial artery/dorsalis pedis: 77/49 cm/sec, with biphasic flow. Velasquez-scale imaging description: Scattered plaque. Widely patent vessels. IMPRESSION: Scattered plaque. Widely patent bilateral lower extremity arterial runoff. Reviewed by: Rj Jim MD on 03/13/2022 9:45 AM PDT Approved by: Rj Jim MD on 03/13/2022 9:45 AM PDT Station ID: [id number]
== END 2022-03-12 12:44 | disposition home or self-care (01) ==
LOC: DI 12:43
PROVIDERS: ATTEND Internal Medicine
DX: I70.203 Unspecified atherosclerosis of native arteries of extremities, bilateral legs (principal)
CPT/HCPCS: 93925

== ENCOUNTER 2022-05-08 12:59 | Outpatient (CLI) | payer MEDICARE ==
--- NOTE | 2022-05-08 16:16 | MRI Report ---
PROCEDURE: Lumbar Spine W/O INDICATIONS: BILATERAL CLAUDICATION TECHNIQUE: Noncontrast sagittal T1 spin echo and T2 fast echo, sagittal STIR, axial T1 and T2 fast spin echo thr ough the lumbar spine. In cases with scoliosis, additional coronal T2 fast spin echo may be performe d. COMPARISON: None. FINDINGS: Image quality: Excellent. Alignment and Curvature: Trace degenerative retrolisthesis of L3 on L4 and of L4 on L5. Trace degener ative anterolisthesis of L5 on S1. Bone Marrow: Marrow is of normal overall signal. No acute vertebral body compression fractures. Spinal Cord: Conus medullaris terminates at the L2 level. Visualized cord demonstrates normal signa l and size. Paraspinous Soft Tissues: No paravertebral masses. T12-L1: No canal stenosis or foraminal stenosis. L1-L2: No canal stenosis or foraminal stenosis. L2-L3: Facet hypertrophy. No canal stenosis or foraminal stenosis. L3-L4: Mild disc height loss. Mild disc bulge. Facet hypertrophy. Epidural lipomatosis. Mild canal stenosis. A right foraminal disc protrusion contributes to moderate right foraminal narrowing and fla ttening deformity on the exiting right L4 nerve root. There is mild to moderate left foraminal narrow ing. L4-L5: Facet hypertrophy. No canal stenosis. Mild bilateral foraminal narrowing. L5-S1: Facet hypertrophy. No canal stenosis. Bilateral moderate to severe foraminal narrowing with a degree of bilateral L5 foraminal nerve root impingement. IMPRESSION: 1. Diffuse degenerative change. 2. Mild canal stenosis at L3-L4. 3. Multilevel foraminal narrowing is present as described above. Findings include a foraminal disc pr otrusion contributing to moderate right foraminal narrowing at L3-L4, as well as bilateral moderate t o severe foraminal narrowing at L5-S1. Reviewed by: Rj Jim MD on 05/08/2022 4:14 PM PDT Approved by: Rj Jim MD on 05/08/2022 4:14 PM PDT Station ID: [id number]
== END 2022-05-08 13:00 | disposition home or self-care (01) ==
LOC: DI 12:59
PROVIDERS: ATTEND Internal Medicine
DX: I73.9 Peripheral vascular disease, unspecified (principal); M51.26 Other intervertebral disc displacement, lumbar region; M48.061 Spinal stenosis, lumbar region without neurogenic claudication; M48.07 Spinal stenosis, lumbosacral region; M43.16 Spondylolisthesis, lumbar region; M43.17 Spondylolisthesis, lumbosacral region

== ENCOUNTER 2024-05-27 10:56 | Emergency (ER) | payer MEDICARE ==
[2024-05-27] MEDS: HYDROcod/ACETAM 5/325 MG TABLET PO STA (11:44)
--- NOTE | 2024-05-27 12:17 | CT Report ---
PROCEDURE: Head WO INDICATIONS: Trauma TECHNIQUE: Noncontrast 4.5 mm thick angled axial sections acquired from the foramen magnum to the vertex. For r adiation dose reduction, the following was used: automated exposure control, adjustment of mA and/or kV according to patient size. COMPARISON: None. FINDINGS: Image quality: Excellent. The ventricular system and cortical sulci demonstrate atrophy, consistent for patient's stated age. There are areas of hypodensity in the periventricular and subcortical whi te matter. There is no acute intra or extra-axial fluid collection. No acute hemorrhage, mass lesio n or midline shift. Brainstem is unremarkable. Globes are symmetrical. Sinuses demonstrate mild mucosal thickening in the right maxillary as well as scattered ethmoid air cells. Osseous structures are intact. Soft tissue densities are present within the auditory canal the right possibly representing cellular debris versus cerumen. IMPRESSION: 1. No acute intracranial process. 2. Mild to moderate atrophy and chronic microvascular ischemic changes. Reviewed by: Charlene Henao MD on 05/27/2024 12:15 PM PDT Approved by: Charlene Henao MD on 05/27/2024 12:15 PM PDT Station ID: [id number]
--- NOTE | 2024-05-27 12:49 | CT Report ---
PROCEDURE: Lumbar Spine WO INDICATIONS: Trauma TECHNIQUE: Noncontrast 3 mm thick sections acquired from the T12 level to the sacrum. Sagittal and coronal refo rmats were constructed. For radiation dose reduction, the following was used: automated exposure co ntrol, adjustment of mA and/or kV according to patient size. COMPARISON: MRI lumbar spine 05/08/2022 FINDINGS: Image quality: Excellent. Bones: There is trace anterolisthesis of L5 on S1, trace retrolisthesis of L4 on 5. There is a nondi splaced lucency along the superior endplate of L3 without significant compression. Lucencies are pres ent in the anterior and middle third of the vertebral body. There is a left transverse process fractu re at L3. Multilevel disc and foraminal narrowing with vacuum disc at L2-3, L3-4, L4-5 and L5-S1. Soft tissues: No retroperitoneal masses or hematomas. Partially visualized aorta iliac endograft is present with unchanged aneurysmal dilation. IMPRESSION: L3 fracture predominantly within the anterior middle through the vertebral body. In addition, L3 left transverse process fracture. Reviewed by: Charlene Henao MD on 05/27/2024 12:47 PM PDT Approved by: Charlene Henao MD on 05/27/2024 12:47 PM PDT Station ID: [id number]
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
[2024-05-27 16:16] VITALS: BP 105/72; O2SAT 96
== END 2024-05-27 16:08 | disposition home or self-care (01) ==
LOC: ED 10:56
DX: S32.039A Unspecified fracture of third lumbar vertebra, initial encounter for closed fracture (principal); W18.39XA Other fall on same level, initial encounter; Y92.481 Parking lot as the place of occurrence of the external cause; I10 Essential (primary) hypertension; Z79.899 Other long term (current) drug therapy; Z79.82 Long term (current) use of aspirin
CPT/HCPCS: 70450; 72131; 99284; A9270

== ENCOUNTER 2024-06-10 14:05 | Outpatient (CLI) | payer MEDICARE ==
[2024-06-10 17:55] LABS: BASOPHILS # (AUTO) 0.1 10^3/uL (0.0-0.1); BASOPHILS % (AUTO) 0.5 %; EOSINOPHILS # (AUTO) 0.2 10^3/uL (0.0-0.7); EOSINOPHILS % (AUTO) 1.9 %; HCT - HEMATOCRIT 48.4 % (42.0-52.0); LYMPHOCYTES # (AUTO) 1.5 10^3/uL (1.5-3.5); LYMPHOCYTES % (AUTO) 14.9 %; MEAN CORPUSCULAR HEMOGLOBIN 31.9 pg (27.0-31.0); MEAN CORPUSCULAR HGB CONC 33.1 g/dL (32.0-36.0); MEAN CORPUSCULAR VOLUME 96.4 fL (80.0-94.0); MEAN PLATELET VOLUME 9.7 fL (7.4-11.4); MONOCYTES # (AUTO) 0.9 10^3/uL (0.0-1.0); MONOCYTES % (AUTO) 8.3 %; NEUTROPHILS # (AUTO) 7.6 10^3/uL (1.5-6.6); NEUTROPHILS % (AUTO) 73.9 %; PLT - PLATELET COUNT 319 10^3/uL (130-450); RED BLOOD COUNT 5.02 10^6/uL (4.70-6.10); RED CELL DISTRIBUTION WIDTH 13.3 % (12.0-15.0); WHITE BLOOD COUNT 10.2 x10^3/uL (4.8-10.8)
[2024-06-10 19:23] LABS: ALBUMIN 4.4 g/dL (3.2-5.5); ALBUMIN/GLOBULIN RATIO 1.5 (1.0-2.2); BILIRUBIN,TOTAL 0.6 mg/dL (0.2-1.0); CALCIUM 10.1 mg/dL (8.5-10.3); CREATININE 1.2 mg/dL (0.6-1.3); POTASSIUM 4.2 mmol/L (3.5-4.5); TOTAL PROTEIN 7.3 g/dL (6.4-8.9)
== END 2024-06-10 14:06 | disposition home or self-care (01) ==
LOC: LAB.N 14:05
PROVIDERS: ATTEND Internal Medicine
DX: S32.038A Other fracture of third lumbar vertebra, initial encounter for closed fracture (principal)
CPT/HCPCS: 36415; 80053; 85025